=== PATIENT | female | born 1975 | race American Indian/Alaskan Native ===

== ENCOUNTER → 2024-07-20 08:20 | Outpatient (REF) | payer OTHER, SELFPAY | LOC: RSP 08:20 | PROVIDERS: FAMILY PHYSICIAN Family Medicine | DX: R06.09 Other forms of dyspnea (principal) | CPT/HCPCS: 94727; 94729; 71046; 88738; 94010 ==

== ENCOUNTER → 2024-09-15 13:14 | Outpatient (REF) | payer OTHER, SELFPAY | LOC: HWRAD 13:14 | PROVIDERS: ATTENDING PHYSICIAN Urology; FAMILY PHYSICIAN Family Medicine | DX: R31.29 Other microscopic hematuria (principal); N94.10 Unspecified dyspareunia; N93.0 Postcoital and contact bleeding; N30.10 Interstitial cystitis (chronic) without hematuria; M62.89 Other specified disorders of muscle; N39.3 Stress incontinence (female) (male) | CPT/HCPCS: 76770; 76856 ==

== ENCOUNTER → 2024-10-16 08:37 | Outpatient (REF) | payer OTHER, SELFPAY | LOC: HWWDC 08:37 | PROVIDERS: ATTENDING PHYSICIAN Obstetrics & Gynecology; FAMILY PHYSICIAN Family Medicine | DX: Z12.31 Encounter for screening mammogram for malignant neoplasm of breast (principal) | CPT/HCPCS: 77063; 77067 ==